=== PATIENT | male | born 1990 | race Caucasian/White ===

== ENCOUNTER 2021-04-23 19:27 | Emergency (ER) | payer OTHER ==
[~2021-04-23] VITALS: Ht 175.3 cm; Wt 72.1 kg
[2021-04-23 20:49] VITALS: BP 125/80
[2021-04-23] MEDS ORDERED: LIDOCAINE HCL MPF 1% 5ML VIAL ONE ×2 (21:21→21:26)
[2021-04-23] MEDS ORDERED: LIDOCAINE HCL MPF 1% 5ML VIAL IM SCH (21:30)
== END 2021-04-23 21:58 | disposition home or self-care (01) ==
LOC: EDH 19:27
DX: S60.111A Contusion of right thumb with damage to nail, initial encounter (principal); W23.0XXA Caught, crushed, jammed, or pinched between moving objects, initial encounter; Y93.89 Activity, other specified; Y92.89 Other specified places as the place of occurrence of the external cause; Y99.0 Civilian activity done for income or pay
CPT/HCPCS: 11740; 73130; 99284; J3490 ×2